=== PATIENT | female | born 1955 | race Caucasian/White ===

== ENCOUNTER 2024-06-12 08:30 | Outpatient (RCR) | payer BC, SELFPAY ==
--- NOTE | 2024-05-02 16:22 | MHC.OT.EP ---
[address] [phone] Occupational Therapy Plan of Care Patient Name: Gwendolyn Quan Date of Evaluation: 05/02/24 Diagnosis: Flexion contracture of pt's L hand Pain Location: Pain Score: 4 Pain Scale Used: Numeric (0 - 10) Aggravating Factors: Stretching and cold Alleviating Factors: moist heat Assessment: Pt was in the ICU in May of 2023 for a non UE related illness. As she progressed and got better she noticed an inability to open her L hand and/ or extend her L wrist. She saw Dr Wharton at the [facility] in [facility] and was sent to OT therapy where she had minimal improvement. In 2023 pt had surgery to decrease the flexion contracture of her L hand and wrist and was attending therapy in [facility] when they discontinued OT therapy at that location (location closed). Pt had a follow up w/ the MD and has been referred to Skilled OT therapy at [facility] for increased AROM and functional use of her L hand Frequency and Duration: The patient will be seen 2 xs a week for 6 weeks Short Term Goals: Pt will be complaint w/ her HEP Pt will be compliant w/ her orthoses wear Pt will be able to use her L hand to hold/grasp a mug of water [employer] Goals: Pt will increase wrist extension to 35 Pt will increase wrist flexion to 65 Pt will increase her ability to make a composite fist meaning MP flexion of digits 2-5 (currently at 0) Treatment Plan: Therapeutic Exercise Therapeutic Activity Home Exercise Program Splinting Neuro Re-ed Patient Education Desensitization/Sensory Re-ed Edema Control ADL Training Ultrasound NMES Iontophoresis Paraffin Fluidotherapy MHP Cold Packs Joint Mobilization Soft Tissue Mobilization Kinesiotaping Other (see comments) Electronically Signed By: Donna King OTR/L Please Sign and return to therapist. Thank you once again for your referral.
== END 2024-06-12 09:02 | disposition home or self-care (01) ==
LOC: HO.OT 08:30
PROVIDERS: PCP Internal Medicine; Visit Provider Orthopaedic Surgery Hand Surgery
DX: M25.542 Pain in joints of left hand (principal); M20.092 Other deformity of left finger(s); G62.9 Polyneuropathy, unspecified
CPT/HCPCS: 97110; 97140; 97166; 97530; 97535

== ENCOUNTER 2024-11-09 12:55 | Outpatient (RCR) | payer BC, SELFPAY | END 2024-11-09 14:14 | disposition home or self-care (01) | LOC: HO.OT 12:55 | PROVIDERS: PCP Internal Medicine; Visit Provider Orthopaedic Surgery Hand Surgery | DX: M24.542 Contracture, left hand (principal) | CPT/HCPCS: 29125; 97165; 97760 ==